=== PATIENT | male | born 1940 | race Caucasian/White ===

== ENCOUNTER 2018-01-16 10:44 | Emergency (ER) | payer SELFPAY ==
[2018-01-16 10:57] VITALS: TEMP 98; BMI 22.1
[2018-01-16 11:47] LABS: BASO % 0.8 % (0-2.0); EOS % 6.3 % (0-4.5); HEMATOCRIT 50.9 % (35.4-49); HEMOGLOBIN 16.5 GM/dL (11.7-16.9); LYMPH % 41.8 % (8-40); MCH 28.5 pg (25.7-33.7); MCHC 32.3 g/dl (32.0-35.9); MEAN CELL VOLUME 88.1 fl (80-96); MONO % 9.3 % (3.8-10.2); NEUT % 41.8 % (42.8-82.8); RBC 5.78 M/mm3 (4.00-5.60); RDW 14.5 % (11.9-15.9); WHITE BLOOD COUNT 8.4 K/mm3 (4.0-10.0)
--- NOTE | 2018-01-16 11:57 | EKG ---
Test Reason : Blood Pressure : / mmHG Vent. Rate : 065 BPM Atrial Rate : 065 BPM P-R Int : 156 ms QRS Dur : 074 ms QT Int : 382 ms P-R-T Axes : 074 061 059 degrees QTc Int : 397 ms NORMAL SINUS RHYTHM POSSIBLE LEFT ATRIAL ENLARGEMENT CANNOT RULE OUT INFERIOR INFARCT , AGE UNDETERMINED ABNORMAL ECG NO PREVIOUS ECGS AVAILABLE Confirmed by SHAQUILLE BAUM MD ([id number]) on 01/16/2018 11:57:14 AM Referred By: Confirmed By:SHAQUILLE BAUM MD
[2018-01-16 11:58] LABS: INR 0.99 (0.82-1.09); PROTHROMBIN TIME (PATIENT) 11.2 SEC (9.7-13.0)
[2018-01-16 12:01] LABS: ACTIVATED PTT 29.3 SECONDS (26.9-34.4)
[2018-01-16 12:17] LABS: ALBUMIN 3.6 g/dl (3.4-5.0); ANION GAP 8 (8-16); BLOOD UREA NITROGEN 10 mg/dL (7-18); CALCIUM 9.1 mg/dL (8.5-10.1); CHLORIDE 105 mmol/L (98-107); CO2 29 mmol/L (21-32); CREATININE 1.1 mg/dL (0.7-1.3); GLUCOSE,RANDOM 88 mg/dL (74-106); POTASSIUM 4.8 mmol/L (3.5-5.1); SGPT/ALT 16 U/L (12-78); SODIUM 142 mmol/L (136-145)
--- NOTE | 2018-01-16 12:20 | PDOC ---
History of Present Illness <Ashly Tatum - Last Filed: 01/16/18 13:42> <JaniceGallo - Last Filed: 01/16/18 16:04> - General Chief Complaint: Chest Pain Stated Complaint: CHEST PAIN Time Seen by Provider: 01/16/18 11:10 - History of Present Illness Initial Comments: 01/16/18 12:05 The patient is a 77 year old male, accompanied by daughter(who translates for him), with no significant past medical history, who presents to the emergency department with chest pain for approximately 1 hour. The patient describes the pain as a midsternal pressure that is nonradiating in nature. He reports his pain has since subsided, and he denies any shortness of breath, diaphoresis, palpitations, lower extremity edema, or lightheadedness. Patient reports he has had this pain in the past and had a negative work up in [place]. He denies any abdominal pain, nausea, or vomiting. He denies any fever, chills, cough, headache, or dizziness. Per daughter, the patient is not on any medications and has no family history of cardiac disease. Allergies: NKDA Past Surgical History; None reported Social History: Non smoker, No ETOH or recreational drug use. " (JaniceGallo) Past History <Dulce Tatumyumikoblair - Last Filed: 01/16/18 13:42> - Past Medical History CVA: No COPD: No - Suicide/Smoking/Psychosocial Hx Smoking History: Never smoked Have you smoked in the past 12 months: No Information on smoking cessation initiated: No Hx Alcohol Use: No Drug/Substance Use Hx: No Substance Use Type: None <JaniceGallo - Last Filed: 01/16/18 16:04> - Past Medical History Allergies/Adverse Reactions: Allergies Allergy/AdvReac Type Severity Reaction Status Date / Time No Known Allergies Allergy Verified 01/16/18 10:52 Home Medications: Ambulatory Orders NK [No Known Home Medication] 01/16/18 Review of Systems <Valentine Tatumkimberly - Last Filed: 01/16/18 13:42> <JaniceGallo - Last Filed: 01/16/18 16:04> - Review of Systems Comments:: 01/16/18 12:20 "GENERAL/CONSTITUTIONAL: No fever or chills. No weakness. HEAD, EYES, EARS, NOSE AND THROAT: No change in vision. No ear pain or discharge. No sore throat. CARDIOVASCULAR: +Chest pain. No shortness of breath. RESPIRATORY: No cough, wheezing, or hemoptysis. GASTROINTESTINAL: No nausea, vomiting, diarrhea or constipation. GENITOURINARY: No dysuria, frequency, or change in urination. MUSCULOSKELETAL: No joint or muscle swelling or pain. No neck or back pain. SKIN: No rash NEUROLOGIC: No headache, vertigo, loss of consciousness, or change in strength/ sensation. ENDOCRINE: No increased thirst. No abnormal weight change. HEMATOLOGIC/LYMPHATIC: No anemia, easy bleeding, or history of blood clots. ALLERGIC/IMMUNOLOGIC: No hives or skin allergy." (Gallo Camacho) *Physical Exam <Ashly Tatum - Last Filed: 01/16/18 13:42> <Gallo Camacho - Last Filed: 01/16/18 16:04> - Vital Signs Last Vital Signs Temp Pulse Resp BP Pulse Ox 98 F 67 14 152/90 98 01/16/18 10:53 01/16/18 10:53 01/16/18 10:53 01/16/18 10:53 01/16/18 11:10 - Physical Exam Comments: 01/16/18 12:20 "GENERAL: Awake, alert, and fully oriented, in no acute distress. HEAD: No signs of trauma EYES: PERRLA, EOMI, sclera anicteric, conjunctiva clear ENT: Auricles normal inspection, hearing grossly normal, nares patent, oropharynx clear without exudates. Moist mucosa NECK: Nontender, no stepoffs, Normal ROM, supple, no lymphadenopathy, JVD, or masses LUNGS: Breath sounds equal, clear to auscultation bilaterally. No wheezes, and no crackles HEART: Regular rate and rhythm, normal S1 and S2, no murmurs, rubs or gallops ABDOMEN: Soft, nontender, normoactive bowel sounds. No guarding, no rebound. No masses EXTREMITIES: Normal range of motion, no edema. No clubbing or cyanosis. No cords, erythema, or tenderness NEUROLOGICAL: Cranial nerves II through XII intact. 5/5 strength and sensation in all extremities, Normal speech, normal gait, normal cerebellar function SKIN: Warm, Dry, normal turgor, no rashes or lesions noted. " (Gallo Camacho) Heart Score/ECG Review <Tatum,Gikimberly - Last Filed: 01/16/18 13:42> - History History: Moderately suspicious - Electrocardiogram EKG: Normal - Age Age: >/= 65 - Risk Factors Based on the list above the patient has:: No risk factors known - Troponin Troponin: </= normal limit - Score Heart Score - Total: 3 <Gallo Camacho - Last Filed: 01/16/18 16:04> - ECG Impressions Comment:: 01/16/18 12:20 NSR, no NIECY/STDs, no TWIs, axis wnl, intervals wnl, rate 65 (Gallo Camacho) ED Treatment Course - LABORATORY CBC & Chemistry Diagram: 01/16/18 11:11 01/16/18 11:30 <Ashly Tatum - Last Filed: 01/16/18 13:42> - LABORATORY CBC & Chemistry Diagram: 01/16/18 11:11 01/16/18 11:30 <Gallo Camacho - Last Filed: 01/16/18 16:04> - ADDITIONAL ORDERS Additional order review: Laboratory Results 01/16/18 01/16/18 01/16/18 15:00 11:30 11:30 PT with INR 11.20 INR 0.99 PTT (Actin FS) 29.3 Sodium 142 Potassium 4.8 Chloride 105 Carbon Dioxide 29 Anion Gap 8 BUN 10 Creatinine 1.1 Creat Clearance w eGFR > 60 Random Glucose 88 Calcium 9.1 Total Bilirubin 0.5 AST 18 ALT 16 Alkaline Phosphatase 88 Creatine Kinase 58 67 Troponin I < 0.02 < 0.02 B-Natriuretic Peptide 98.90 Total Protein 7.2 Albumin 3.6 Lipase 139 01/16/18 11:11 RBC 5.78 H MCV 88.1 MCHC 32.3 RDW 14.5 Neutrophils % 41.8 L Lymphocytes % 41.8 H Monocytes % 9.3 Eosinophils % 6.3 H Basophils % 0.8 - RADIOLOGY Radiology Studies Ordered: Category Date Time Status CHEST PA & LAT [RAD] Stat Radiology 01/16/18 11:24 Completed Radiograph Interpretation: 01/16/18 13:43 EXAM: CXR INTERPRETED BY: Dr. Davidson REVIEWED BY: Dr. Camacho IMPRESSION: A single reveals degenerative changes with wedging, old apical disease, sclerotic knob, normal dangelo and normal heart. The lungs are clear. The angles are sharp and the soft tissues are intact. An acute process is not seen. There are no prior studies for comparison. No acute pathology (Ashly Tatum) Medical Decision Making <Ashly Tatum - Last Filed: 01/16/18 13:42> <Gallo Camacho - Last Filed: 01/16/18 16:04> - Medical Decision Making 01/16/18 12:20 77 M with transient episode of chest pain, now resolved. Pain is very atypical, and pt is currently asymptomatic. EKG with no signs of ischemia but will need to r/o ACS. Pt with no clinical signs of DVT. - Labs, trop - CXR 01/16/18 16:00 Trop negative x 2 Labs wnl CXR clear Pt reassessed - continues to be pain free. Pt is well appearing, with normal vitals. Clinically stable for DC at this time. I discussed the physical exam findings, ancillary test results and final diagnoses with the patient. I answered all of the patient's questions. The patient was satisfied with the care received and felt comfortable with the discharge plan and treatment plan. The patient agrees to follow up with the primary care physician within 24-72 hours. (Gallo Camacho) *DC/Admit/Observation/Transfer <Ashly Tatum - Last Filed: 01/16/18 13:42> <Gallo Camacho - Last Filed: 01/16/18 16:04> Diagnosis at time of Disposition: Chest pain - Discharge Dispostion Disposition: HOME - Referrals Referrals: Néstor Kasper MD [Staff Physician] - - Patient Instructions Printed Discharge Instructions: DI for Atypical Chest Pain Additional Instructions: Even though your labs and EKG were normal today, we cannot rule out all heart disease. You must follow up with your primary doctor for additional testing, including a stress test. Call the number provided to make an appointment with our primary care doctor if you do not have one. If you experience recurrent chest pain, shortness of breath, or any other concerning symptoms, return to the ER immediately. - Attestations Scribe Attestion: 01/16/18 13:44 Documentation prepared by Ashly Tatum, acting as medical educator for Gallo Camacho MD. (Ashly Tatum) Physician Attestion: 01/16/18 16:04 I, Dr. Gallo Camacho MD, attest that this document has been prepared under my direction and personally reviewed by me in its entirety. I further attest, that it accurately reflects all work, treatment, procedures and medical decision -making performed by me. (Gallo Camacho)
[2018-01-16 12:27] LABS: ALK PHOS 88 U/L (45-117); BILIRUBIN,TOTAL 0.5 mg/dL (0.2-1.0); LIPASE 139 U/L (73-393); SGOT/AST 18 U/L (15-37); TOT PROT 7.2 g/dl (6.4-8.2)
[2018-01-16 12:36] LABS: PLATELET ESTIMATE DECREASED
[2018-01-16 16:19] VITALS: BP 150/87; PULSE 71
== END 2018-01-16 16:18 | disposition home or self-care (01) ==
LOC: JER 10:44
DX: R07.9 Chest pain, unspecified (principal)
CPT/HCPCS: 36415; 71046-TC-FY; 80053; 82550; 83690; 83880; 84484; 85025; 85610; 85730; 93005; 93010; 99285-25